=== PATIENT | female | born 1960 | race Caucasian/White ===

== ENCOUNTER → 2024-08-08 09:32 | Outpatient (CLI) | payer OTHER, SELFPAY ==
--- NOTE | 2024-08-08 | DI.RAD.S_ITS ---
PROCEDURE: XR CERVICAL SPINE 2V OR 3V INDICATIONS: neck pain, tremors TECHNIQUE: Three views (s) of the cervical spine were acquired. COMPARISON: None. FINDINGS: Cervical spine curvature and alignment: Normal. Bones: There are no osseous abnormalities. Disc spaces: Normal in height without significant degeneration. There is narrowing of the C4-5, C5-6, C6-7 and C7-T1 facet joints suggesting mild degeneration Soft tissues: No soft tissue swelling, calcification or mass. IMPRESSION: Mild facet degeneration Dictated by: Jayden Colon M.D. on 08/08/2024 at 10:51 Approved by: Jayden Colon M.D. on 08/08/2024 at 10:52
== END ==
PROVIDERS: Referring Provider Internal Medicine Cardiovascular Disease; Visit Provider Internal Medicine Cardiovascular Disease
DX: M54.2 Cervicalgia (principal); M47.812 Spondylosis without myelopathy or radiculopathy, cervical region
CPT/HCPCS: 72040